=== PATIENT | female | born 1980 | race Caucasian/White ===

== ENCOUNTER 2018-03-06 15:00 | Inpatient (IN) | payer OTHER ==
[~2018-03-06] VITALS: Ht 180.3 cm; Wt 96.6 kg
[~2018-03-06 15:00] MED LIST: PRENATAL TABLE1 EAC1
[2018-03-17] MEDS ORDERED: VALACYCLOVIR500 MG PO (21:08)
== END 2018-04-01 15:01 | DRG 775 ==
LOC: OB/GYN 03-30 17:16 → LDR 03-30 17:16 → OB/GYN 03-31 10:22
PROC: 10E0XZZ Delivery of Products of Conception, External Approach (ICD-10-PCS; principal; 2018-03-30)
PROC: 0UQGXZZ Repair Vagina, External Approach (ICD-10-PCS; 2018-03-30)
PROC: 4A1HXCZ Monitoring of Products of Conception, Cardiac Rate, External Approach (ICD-10-PCS; 2018-03-30)
DX: O71.4 Obstetric high vaginal laceration alone (principal); O69.81X0 Labor and delivery complicated by cord around neck, without compression, not applicable or unspecified; Z3A.39 39 weeks gestation of pregnancy; Z37.0 Single live birth; O09.523 Supervision of elderly multigravida, third trimester

== ENCOUNTER 2018-03-17 19:41 | Outpatient (CLI) | payer OTHER ==
[2018-03-17] MEDS ORDERED: VALACYCLOVIR500 MG PO (21:08)
== END 2018-03-18 08:32 | disposition home or self-care (01) ==
LOC: OBS/DEL 19:41
DX: O47.1 False labor at or after 37 completed weeks of gestation (principal); Z34.83 Encounter for supervision of other normal pregnancy, third trimester

== ENCOUNTER 2018-03-21 09:23 | Outpatient (CLI) | payer OTHER ==
[~2018-03-21 09:23] MED LIST changes: +VALACYCLOVIR500 MG PO
== END 2018-03-21 10:39 | disposition home or self-care (01) ==
LOC: NST 09:23
DX: Z34.83 Encounter for supervision of other normal pregnancy, third trimester (principal)

== ENCOUNTER 2020-05-13 15:53 | Inpatient (IN) | payer OTHER ==
[~2020-05-13] VITALS: Ht 180.3 cm; Wt 100.7 kg
[2020-06-04] MEDS ORDERED: ONCE DAILY1 EACH PO (11:10)
== END 2020-06-06 13:01 | disposition home or self-care (01) | DRG 798 ==
LOC: LDR 06-04 07:42 → OB/GYN 06-04 17:59
PROVIDERS: Obstetrics & Gynecology Maternal & Fetal Medicine; ADMIT Obstetrics & Gynecology; ATTEND Obstetrics & Gynecology
PROC: 0UB70ZZ Excision of Bilateral Fallopian Tubes, Open Approach (ICD-10-PCS; 2020-06-04)
PROC: 0KQM0ZZ Repair Perineum Muscle, Open Approach (ICD-10-PCS; 2020-06-04)
PROC: 4A1HXFZ Monitoring of Products of Conception, Cardiac Rhythm, External Approach (ICD-10-PCS; 2020-06-04)
PROC: 3E033VJ Introduction of Other Hormone into Peripheral Vein, Percutaneous Approach (ICD-10-PCS; 2020-06-04)
PROC: 10E0XZZ Delivery of Products of Conception, External Approach (ICD-10-PCS; principal; 2020-06-04 17:00)
DX: O70.1 Second degree perineal laceration during delivery (principal); Z37.0 Single live birth; Z3A.39 39 weeks gestation of pregnancy; Z30.2 Encounter for sterilization; Z20.828 Contact with and (suspected) exposure to other viral communicable diseases